=== PATIENT | female | born 1975 | race Caucasian/White ===

== ENCOUNTER 2024-04-30 03:40 | Emergency (ER) | payer SELFPAY ==
[~2024-04-30] VITALS: Ht 152.4 cm; Wt 87.0 kg
[2024-04-30 03:48] VITALS: O2SAT 98
[2024-04-30 04:43] LABS: CLARITY URINE CLEAR (CLEAR); COLOR URINE YELLOW (YELLOW); GLUCOSE URINE NEGATIVE (NEGATIVE); KETONES URINE TRACE (NEGATIVE); LEUKOCYTE ESTERASE URINE 1+ (NEGATIVE); NITRITE URINE NEGATIVE (NEGATIVE); OCCULT BLOOD URINE NEGATIVE (NEGATIVE); PROTEIN URINE NEGATIVE (NEGATIVE); SPECIFIC GRAVITY URINE 1.023 (1.005-1.030); UROBILINOGEN URINE 0.2 E.U./dL (0.2-1.0)
[2024-04-30 05:05] LABS: BACTERIA URINE TRACE; RBC URINE NONE SEEN /hpf (0-2); SQUAMOUS EPITHELIAL CELL URINE FEW /lpf (RARE/1+)
[2024-04-30] MEDS ORDERED: FAMOTIDINE 20MG/2ML VIAL IV STA (05:11)
[2024-04-30] MEDS ORDERED: KETOROLAC 30MG/ML VIAL IV STA (05:11)
[2024-04-30] MEDS ORDERED: ONDANSETRON HCL 4MG/2ML INJ IV STA (05:11)
[2024-04-30 05:26] LABS: HEMOGLOBIN. 12.6 g/dL (12.0-16.0); MEAN CORPUSCULAR HEMOGLOBIN 30.5 pg (28.0-32.0); MEAN CORPUSCULAR VOLUME 92.3 fL (81.0-99.0); MEAN PLATELET VOLUME 8.3 fl (7.4-10.4); PLATELET 313 x1000/uL (130-400); RED BLOOD CELL COUNT 4.12 mill/uL (4.2-5.4); RED CELL DISTRIBUTION WIDTH 15.1 % (11.6-14.6); WHITE BLOOD COUNT 14.7 x1000/uL (4.5-11.0)
[2024-04-30 05:31] LABS: DIFFERENTIAL COMMENT 1
[2024-04-30 05:35] LABS: CHLORIDE 105 mEq/L (98-107); POTASSIUM 4.4 mEq/L (3.5-5.1); SODIUM 137 mEq/L (136-145)
[2024-04-30 05:36] LABS: CALCIUM 9.2 mg/dL (8.7-10.4); CARBON DIOXIDE 26 mEq/L (21-32)
[2024-04-30 05:41] LABS: CREATININE 0.7 mg/dL (0.6-1.0); GLUCOSE 149 mg/dL (70-105); UREA NITROGEN BLOOD 15 mg/dL (9-23)
[2024-04-30 05:43] LABS: ALANINE AMINOTRANSFERASE 64 IU/L (10-49); ALBUMIN 4.3 g/dL (3.2-4.8); ASPARTATE AMINOTRANSFERASE 56 IU/L (<34); BILIRUBIN DIRECT 0.1 mg/dL (<=3.0)
[2024-04-30 05:44] LABS: BILIRUBIN TOTAL 0.4 mg/dL (0.1-1.0); PROTEIN TOTAL 7.5 g/dL (6.0-8.3); TROPONIN I HIGH SENSITIVITY < 4 ng/L (3.0-34)
[2024-04-30 05:52] LABS: INR 0.9; PROTHROMBIN TIME 10.3 sec (9.6-11.0)
[2024-04-30] MEDS: KETOROLAC 30MG/ML VIAL IV NR (06:52)
[2024-04-30] MEDS: FAMOTIDINE 20MG/2ML VIAL IV NR (06:52)
[2024-04-30] MEDS: ONDANSETRON HCL 4MG/2ML INJ IV NR (06:52)
[2024-04-30 06:56] LABS: HCG SCREEN NEGATIVE
[2024-04-30 07:00] LABS: PLATELET ESTIMATE NORMAL
[2024-04-30] MEDS ORDERED: TOPUD PO (07:29)
[2024-04-30] MEDS ORDERED: ONDA4TAB50 PO (07:29)
[2024-04-30] MEDS ORDERED: NITR100C PO (07:31)
[2024-04-30 07:48] VITALS: BP 127/75; PULSE 67; RESP 18; TEMP 98.1
== END 2024-04-30 07:51 | disposition home or self-care (01) ==
LOC: ER 03:40
DX: N39.0 Urinary tract infection, site not specified (principal); E11.9 Type 2 diabetes mellitus without complications; I10 Essential (primary) hypertension; Z90.49 Acquired absence of other specified parts of digestive tract; Z98.890 Other specified postprocedural states
CPT/HCPCS: 99285; 96374; 76705; 96375; 80076; 80048; 81003; 84703; 83690; 85025; 85610; 84484; 36415; J3490; J1885; J2405